=== PATIENT | female | born 1995 | race Caucasian/White ===

== ENCOUNTER 2019-01-16 16:08 | Emergency (ER) | payer OTHER ==
[~2019-01-16] VITALS: Ht 180.3 cm; Wt 117.9 kg
[2019-01-16] MEDS ORDERED: VENTOLIN 02.5 MG/3 M INH (18:32)
[2019-01-16] MEDS ORDERED: NORCO 5-325 TA1 EACH PO (18:32)
[2019-01-16] MEDS ORDERED: PREDNISONE10 MG PO (18:32)
== END 2019-01-16 18:40 | disposition home or self-care (01) ==
LOC: ED 16:08
DX: S20.212A Contusion of left front wall of thorax, initial encounter (principal); S20.211A Contusion of right front wall of thorax, initial encounter; S00.83XA Contusion of other part of head, initial encounter; R11.10 Vomiting, unspecified; J45.909 Unspecified asthma, uncomplicated; Z91.018 Allergy to other foods; Y04.0XXA Assault by unarmed brawl or fight, initial encounter; Y93.89 Activity, other specified; Y92.89 Other specified places as the place of occurrence of the external cause; Y99.0 Civilian activity done for income or pay

== ENCOUNTER 2020-02-24 17:39 | Emergency (ER) | payer SELFPAY ==
[~2020-02-24] VITALS: Ht 180.3 cm; Wt 117.9 kg
[~2020-02-24 17:39] MED LIST: NORCO 5-325 TA1 EACH PO; PREDNISONE10 MG PO; VENTOLIN 02.5 MG/3 M INH
== END 2020-02-24 19:48 | disposition home or self-care (01) ==
LOC: ED 17:39
DX: S93.401A Sprain of unspecified ligament of right ankle, initial encounter (principal); J45.909 Unspecified asthma, uncomplicated; Z91.018 Allergy to other foods; X50.1XXA Overexertion from prolonged static or awkward postures, initial encounter; Y93.89 Activity, other specified; Y92.89 Other specified places as the place of occurrence of the external cause; Y99.8 Other external cause status

== ENCOUNTER 2023-02-24 15:31 | Emergency (ER) | payer MEDICARE ==
[~2023-02-24] VITALS: Ht 180.3 cm; Wt 129.3 kg
[2023-02-24] MEDS ORDERED: Ipratropium Brom3 ML INH (16:20)
[2023-02-24] MEDS ORDERED: OMEPRAZOLE40 MG PO (16:20)
[2023-02-24] MEDS ORDERED: PROVENTIL HFA6.7 GM INH (16:21)
[2023-02-24 16:22] LABS: BASO # 0.1 10*3/uL (0.0-0.1); BASO % 0.5 % (0.0-1.0); EOS # 0.1 10*3/uL (0.0-0.4); EOS % 0.4 % (1.0-4.0); HEMATOCRIT 43.8 % (37.0-47.0); LYMPH # 1.8 10*3/uL (1.3-4.4); LYMPH % 13.3 % (27.0-41.0); MEAN CELL VOLUME 86.1 fl (81.0-99.0); MEAN CORPUSCULAR HGB 27.1 pg (27.0-31.0); MEAN CORPUSCULAR HGB CONC 31.5 g/dl (33.0-37.0); MEAN PLATELET VOLUME 9.8 fl (9.6-12.3); MONO # 0.3 10*3/uL (0.1-1.0); MONO % 2.2 % (3.0-9.0); NEUT # 11.2 10*3/uL (2.3-7.9); NEUT % 83.1 % (47.0-73.0); PLATELET COUNT AUTOMATED 316 10*3/uL (130-400); RED BLOOD COUNT 5.09 10*6/uL (4.10-5.10); RED CELL DISTRI WIDTH 13.6 % (0-14.5); WHITE BLOOD COUNT 13.5 10*3/uL (4.8-10.8)
[2023-02-24] MEDS ORDERED: FAMOTIDINE40 MG PO (16:22)
[2023-02-24] MEDS ORDERED: SINGULAIR10 M1 PO (16:22)
[2023-02-24] MEDS ORDERED: FLUTICASONE-SAL12 GM INH (16:24)
[2023-02-24] MEDS ORDERED: METFORMIN XR500 MG PO (16:25)
[2023-02-24] MEDS ORDERED: ZYRTEC-D TABLE1 EACH PO (16:28)
[2023-02-24] MEDS ORDERED: ZOLOFT100 MG PO (16:28)
[2023-02-24 16:41] LABS: ALKALINE PHOSPHATASE 101 U/L (46-116); BETA-HCG, QUANT < 3.0 mIU/mL (0-10); BUN 13 mg/dl (9-23); CHLORIDE 103 mmol/L (98-107); LIPASE 45 U/L (12-53); POTASSIUM 4.4 mmol/L (3.4-5.1); SGPT/ALT 23 U/L (10-49); TOTAL PROTEIN 7.7 gm/dL (6.0-8.0)
[2023-02-24] MEDS ORDERED: ZITHROMAX250 MG PO (17:47)
== END 2023-02-24 17:54 | disposition home or self-care (01) ==
LOC: ED 15:31
PROVIDERS: Emergency Medicine
DX: J20.9 Acute bronchitis, unspecified (principal); Z91.018 Allergy to other foods; Z79.899 Other long term (current) drug therapy

== ENCOUNTER 2025-06-29 23:34 | Emergency (ER) | payer OTHER ==
[~2025-06-29] VITALS: Ht 180.3 cm; Wt 124.7 kg
[~2025-06-29 23:34] MED LIST changes: +FAMOTIDINE40 MG PO; +FLUTICASONE-SAL12 GM INH; +Ipratropium Brom3 ML INH; +METFORMIN XR500 MG PO; +OMEPRAZOLE40 MG PO; +PROVENTIL HFA6.7 GM INH; +SINGULAIR10 M1 PO; +ZITHROMAX250 MG PO; +ZOLOFT100 MG PO; +ZYRTEC-D TABLE1 EACH PO
[2025-06-29] MEDS ORDERED: Glucagon Hydrochloride 1 MG SYR IV ONE (23:55)
[2025-06-30] MEDS ORDERED: Glucagon Hydrochloride 1 MG SYR IV ONE (00:30)
[2025-06-30] MEDS ORDERED: Glucagon Hydrochloride 1 MG SYR ONE (01:09)
== END 2025-06-30 02:08 | disposition short-term general hospital (02) ==
LOC: ED 23:34
DX: K22.2 Esophageal obstruction (principal); Z91.018 Allergy to other foods